=== PATIENT | male | born 1960 | race Hispanic/Latino ===

== ENCOUNTER 2023-09-05 00:27 | Inpatient (IN) | payer BC ==
[~2023-09-05] VITALS: Ht 188 cm; Wt 145.6 kg
[~2023-09-05 00:27] MED LIST: APIX5TAB PO; INSU200I4 SQ; METO25 PO; OLME40TA18 PO
[2023-09-05] MEDS ORDERED: DILTIAZEM 25MG INJ IVP ONE (00:48)
[2023-09-05 01:05] LABS: BASOPHILS # (AUTO) 0.01 K/uL (0.00-0.20); BASOPHILS % (AUTO) 0.2 % (0.0-5.0); EOSINOPHILS # (AUTO) 0.16 K/uL (0.00-0.70); EOSINOPHILS % (AUTO) 2.7 % (0.0-8.0); HEMATOCRIT 44.9 % (42-54); IMMATURE GRANULOCYTE ABSOLUTE 0.04 K/uL (0-1); LYMPHOCYTES # (AUTO) 1.1 K/uL (1.0-4.8); LYMPHOCYTES % (AUTO) 18.6 % (21.0-51.0); MEAN CORPUSCULAR HEMOGLOBIN 26.3 pg (27.0-33.0); MEAN CORPUSCULAR HGB CONC 31.2 g/dL (32.0-36.0); MEAN CORPUSCULAR VOLUME 84.2 fL (79-99); MONOCYTES # (AUTO) 0.4 K/uL (0.1-1.0); MONOCYTES % (AUTO) 6.7 % (3.0-13.0); NEUTROPHILS # (AUTO) 4.3 K/uL (1.8-7.7); NEUTROPHILS % (AUTO) 71.1 % (40.0-77.0); PLATELET COUNT (AUTO) 104 K/uL (130-400); RED BLOOD CELL COUNT(AUTO) 5.33 MIL/uL (4.50-6.20); RED CELL DISTRIBUTION WIDTH 16.2 % (11.0-15.5)
[2023-09-05 01:07] LABS: APPEARANCE,URINE CLEAR (CLEAR); BILIRUBIN,URINE NEGATIVE (NEGATIVE); COLOR,URINE YELLOW (YELLOW); GLUCOSE, URINE (UA) 30 mg/dL (NEGATIVE); KETONES,URINE NEGATIVE (NEGATIVE); LEUKOCYTE ESTERASE ,URINE 250 Leu/uL (NEGATIVE); NITRATE,URINE NEGATIVE (NEGATIVE); OCCULT BLOOD,URINE NEGATIVE (NEGATIVE); PH,URINE 5.5 (5.0-8.0); PROTEIN,URINE 20 mg/dL (NEGATIVE)
[2023-09-05 01:12] LABS: ADD UA MICROSCOPIC YES
[2023-09-05 01:14] LABS: MUCUS,URINE RARE LPF (None Seen); SQUAMOUS EPITHELIAL CELL,UR RARE /HPF (0-2); WBC,URINE 26-50 /HPF (0-1)
[2023-09-05 01:20] LABS: CREATININE 0.9 mg/dL (0.5-1.5); POTASSIUM 4.6 mmol/L (3.5-5.1)
[2023-09-05 01:24] LABS: ALBUMIN 3.6 g/dL (3.5-5.0); TOTAL PROTEIN, SERUM 7.2 g/dL (6.0-8.3)
[2023-09-05] MEDS ORDERED: ACETAMINOPHEN 325 MG TAB PO PRN ×2 (02:30)
[2023-09-05] MEDS ORDERED: LACTULOSE 20 GM/30 ML UDCUP PO PRN (02:30)
[2023-09-05] MEDS ORDERED: CEFTRIAXONE 2GM VIAL IVPB ONE (02:30)
[2023-09-05] MEDS ORDERED: CEFTRIAXONE 1G VIAL 1 GM in 0.9%NACL 50ML 50 ML IV SCH (02:30)
[2023-09-05] MEDS ORDERED: ONDANSETRON 4MG INJ IV PRN (02:30)
[2023-09-05] MEDS ORDERED: METF-527 PO (06:56)
[2023-09-05] MEDS ORDERED: CANA300T PO (06:56)
[2023-09-05] MEDS ORDERED: METOPROLOL TARTRATE 25 MG TAB ONE (07:24)
[2023-09-05] MEDS: METOPROLOL TARTRATE 25 MG TAB PO SCH ×2 (08:08→21:25)
[2023-09-05] MEDS: ENOXAPARIN SODIUM 40 MG/0.4 ML SYRINGE SQ SCH (08:53)
[2023-09-05] MEDS: INSULIN HUMULIN R 100 UNIT/ML 3ML SQ SCH ×4 (08:53→21:25)
[2023-09-05] MEDS: FAMOTIDINE 20MG TAB PO SCH ×2 (08:53→21:25)
[2023-09-06] VITALS (7 sets, daily range): BP systolic 116–127; BP diastolic 59–79; PULSE 77–106; RESP 16–20; O2SAT 97–99
[2023-09-06] MEDS: CEFTRIAXONE 1G VIAL IVPB SCH (03:27)
[2023-09-06] MEDS: INSULIN HUMULIN R 100 UNIT/ML 3ML SQ SCH ×4 (08:42→21:33)
[2023-09-06] MEDS: METOPROLOL TARTRATE 25 MG TAB PO SCH ×2 (08:46→21:32)
[2023-09-06] MEDS: ENOXAPARIN SODIUM 40 MG/0.4 ML SYRINGE SQ SCH (08:47)
[2023-09-06] MEDS: FAMOTIDINE 20MG TAB PO SCH ×2 (08:47→21:32)
[2023-09-06] MEDS ORDERED: INSU100V37 SQ (17:39)
[2023-09-07] MEDS: CEFTRIAXONE 1G VIAL IVPB SCH (02:14)
[2023-09-07 03:27] VITALS: BP 109/52; PULSE 74; RESP 18
[2023-09-07 04:15] LABS: BASOPHILS # (AUTO) 0.04 K/uL (0.00-0.20); BASOPHILS % (AUTO) 0.7 % (0.0-5.0); EOSINOPHILS # (AUTO) 0.16 K/uL (0.00-0.70); EOSINOPHILS % (AUTO) 2.7 % (0.0-8.0); HEMATOCRIT 42.7 % (42-54); IMMATURE GRANULOCYTE ABSOLUTE 0.04 K/uL (0-1); LYMPHOCYTES # (AUTO) 1.1 K/uL (1.0-4.8); LYMPHOCYTES % (AUTO) 18.9 % (21.0-51.0); MEAN CORPUSCULAR HEMOGLOBIN 25.7 pg (27.0-33.0); MEAN CORPUSCULAR HGB CONC 30.9 g/dL (32.0-36.0); MEAN CORPUSCULAR VOLUME 83.1 fL (79-99); MONOCYTES # (AUTO) 0.4 K/uL (0.1-1.0); MONOCYTES % (AUTO) 6.1 % (3.0-13.0); NEUTROPHILS # (AUTO) 4.2 K/uL (1.8-7.7); NEUTROPHILS % (AUTO) 70.9 % (40.0-77.0); PLATELET COUNT (AUTO) 104 K/uL (130-400); RED BLOOD CELL COUNT(AUTO) 5.14 MIL/uL (4.50-6.20); RED CELL DISTRIBUTION WIDTH 16.4 % (11.0-15.5); WHITE BLOOD COUNT (AUTO) 5.9 K/uL (4.8-10.8)
[2023-09-07 04:30] LABS: CREATININE 1.1 mg/dL (0.5-1.5); POTASSIUM 4.5 mmol/L (3.5-5.1)
[2023-09-07] MEDS: INSULIN HUMULIN R 100 UNIT/ML 3ML SQ SCH ×2 (06:05→12:00)
[2023-09-07 08:00] VITALS: BP 136/75; PULSE 106; RESP 18; O2SAT 94
[2023-09-07] MEDS: FAMOTIDINE 20MG TAB PO SCH (09:37)
[2023-09-07] MEDS: METOPROLOL TARTRATE 25 MG TAB PO SCH (09:37)
[2023-09-07] MEDS: ENOXAPARIN SODIUM 40 MG/0.4 ML SYRINGE SQ SCH (09:37)
[2023-09-07 11:48] VITALS: BP 129/66; PULSE 75; RESP 17
[2023-09-07] MEDS ORDERED: CEFD300C3 PO (15:00)
[2023-09-07 15:42] VITALS: BP 143/75; PULSE 78; RESP 18
== END 2023-09-07 16:10 | disposition home or self-care (01) | DRG 292 ==
LOC: EDH 00:27 → EDHIP 02:25 → 4BH 09-06 19:39 → 4CH 09-06 19:40
PROVIDERS: ADMIT Hospitalist; ATTEND Hospitalist
DX: I11.0 Hypertensive heart disease with heart failure (principal); E66.2 Morbid (severe) obesity with alveolar hypoventilation; N39.0 Urinary tract infection, site not specified; Z68.41 Body mass index [BMI] 40.0-44.9, adult; I48.92 Unspecified atrial flutter; I48.91 Unspecified atrial fibrillation; I50.30 Unspecified diastolic (congestive) heart failure; E11.9 Type 2 diabetes mellitus without complications; D69.6 Thrombocytopenia, unspecified; I87.2 Venous insufficiency (chronic) (peripheral); L30.9 Dermatitis, unspecified; I87.8 Other specified disorders of veins; Z79.899 Other long term (current) drug therapy
CPT/HCPCS: 36415; 80048; 80053; 81001; 82550; 82948; 83735; 84484; 85025; 93005; 96365; 96375; G0378; J0696; J1650; J1815; J3490